=== PATIENT | male | born 1950 ===

== ENCOUNTER 2018-06-06 10:30 | Inpatient (IN) | payer OTHER ==
[~2018-06-06] VITALS: Ht 170.2 cm; Wt 80.3 kg
[2018-06-11] MEDS ORDERED: ASA81 MG PO (10:20)
[2018-06-11] MEDS ORDERED: FENOFIBRATE145 MG PO (10:20)
[2018-06-11] MEDS ORDERED: TOPROL XL25 MG PO (10:20)
[2018-06-11] MEDS ORDERED: SENTRALINE PO (10:21)
[2018-06-14] MEDS ORDERED: ZOLOFT25 MG PO (08:26)
[2018-06-17] MEDS ORDERED: IMODIUM A-D2 M2 PO (10:14)
[2018-06-17] MEDS ORDERED: OXYC1TAB9 PO (10:14)
[2018-06-17] MEDS ORDERED: TAMS0.4C PO (10:15)
[2018-06-17] MEDS ORDERED: LEVAQUIN750 MG PO (10:16)
== END 2018-06-17 13:54 | disposition home or self-care (01) | DRG 331 ==
LOC: SURG 06-13 08:30 → O/R 06-13 11:44 → SURH 06-13 11:44 → EDSEX 06-17 13:54
PROVIDERS: Surgery
PROC: 07TC4ZZ Resection of Pelvis Lymphatic, Percutaneous Endoscopic Approach (ICD-10-PCS; 2018-06-13)
PROC: 0DTP4ZZ Resection of Rectum, Percutaneous Endoscopic Approach (ICD-10-PCS; 2018-06-13)
PROC: 0D1B4Z4 Bypass Ileum to Cutaneous, Percutaneous Endoscopic Approach (ICD-10-PCS; 2018-06-13)
PROC: 0DJD8ZZ Inspection of Lower Intestinal Tract, Via Natural or Artificial Opening Endoscopic (ICD-10-PCS; 2018-06-13)
PROC: 0DTN4ZZ Resection of Sigmoid Colon, Percutaneous Endoscopic Approach (ICD-10-PCS; principal; 2018-06-13 08:30)
DX: D12.8 Benign neoplasm of rectum (principal); I10 Essential (primary) hypertension; R33.8 Other retention of urine

== ENCOUNTER 2018-06-19 19:18 | Inpatient (IN) | payer OTHER ==
[~2018-06-19] VITALS: Ht 170.2 cm; Wt 77.1 kg
[~2018-06-19 19:18] MED LIST: ASA81 MG PO; FENOFIBRATE145 MG PO; IMODIUM A-D2 M2 PO; LEVAQUIN750 MG PO; OXYC1TAB9 PO; SENTRALINE PO; TAMS0.4C PO; TOPROL XL25 MG PO; ZOLOFT25 MG PO
== END 2018-06-25 14:56 | disposition home or self-care (01) | DRG 394 ==
LOC: ER 19:18 → SURH 06-20 09:46 → SEC-K 06-20 09:46 → SURH 06-20 16:45
PROC: 3E0436Z Introduction of Nutritional Substance into Central Vein, Percutaneous Approach (ICD-10-PCS; principal; 2018-06-21)
PROC: 02HV33Z Insertion of Infusion Device into Superior Vena Cava, Percutaneous Approach (ICD-10-PCS; 2018-06-21)
DX: K94.19 Other complications of enterostomy (principal); K91.31 Postprocedural partial intestinal obstruction; I10 Essential (primary) hypertension; R33.8 Other retention of urine

== ENCOUNTER 2018-10-08 12:30 | Inpatient (IN) | payer OTHER ==
[~2018-10-08] VITALS: Ht 170.2 cm; Wt 74.8 kg
[~2018-10-08 12:30] MED LIST changes: +CLONAZEPAM1 MG PO
[2018-10-18] MEDS ORDERED: TRAM1TAB98 PO (08:16)
[2018-10-18] MEDS ORDERED: Intestinex CAP PO (08:17)
[2018-10-18] MEDS ORDERED: KLOR-CON8 MEQ PO (08:17)
[2018-10-18] MEDS ORDERED: CIPROFLOXACIN500 MG PO (08:18)
[2018-10-18] MEDS ORDERED: FLAGYL500MG PO (08:19)
== END 2018-10-18 10:48 | disposition home or self-care (01) | DRG 331 ==
LOC: SURH 10-10 07:02 → O/R 10-10 07:02 → RECOVERY 10-10 12:30 → SURH 10-10 13:41 → RECOVERY 10-10 19:45 → SURH 10-18 10:48
PROVIDERS: ADMIT Surgery
PROC: 0DJD8ZZ Inspection of Lower Intestinal Tract, Via Natural or Artificial Opening Endoscopic (ICD-10-PCS; 2018-10-10)
PROC: 0DQB4ZZ Repair Ileum, Percutaneous Endoscopic Approach (ICD-10-PCS; principal; 2018-10-10 19:45)
PROC: 0D7N8DZ Dilation of Sigmoid Colon with Intraluminal Device, Via Natural or Artificial Opening Endoscopic (ICD-10-PCS; 2018-10-15)
PROC: BW21ZZZ Computerized Tomography (CT Scan) of Abdomen and Pelvis (ICD-10-PCS; 2018-10-16)
DX: Z43.2 Encounter for attention to ileostomy (principal); K66.0 Peritoneal adhesions (postprocedural) (postinfection); K62.4 Stenosis of anus and rectum; R14.0 Abdominal distension (gaseous); I10 Essential (primary) hypertension; R33.8 Other retention of urine; Z86.010 Personal history of colon polyps

== ENCOUNTER 2020-03-02 07:06 | Day surgery (SDC) | payer OTHER ==
[~2020-03-02 07:06] MED LIST changes: +CIPROFLOXACIN500 MG PO; +FLAGYL500MG PO; +Intestinex CAP PO; +KLOR-CON8 MEQ PO; +TRAM1TAB98 PO
== END 2020-03-02 12:20 | disposition home or self-care (01) ==
LOC: AMB-ENDOS 07:06
PROVIDERS: ATTEND Surgery
DX: D12.4 Benign neoplasm of descending colon (principal)